=== PATIENT | female | born 1990 | race African-American/Black ===

== ENCOUNTER 2016-08-30 14:58 | Outpatient (CLI) | payer MEDICAID | END 2016-08-30 14:59 | disposition home or self-care (01) | DX: Z11.3 Encounter for screening for infections with a predominantly sexual mode of transmission (principal) ==

== ENCOUNTER 2017-12-15 13:54 | Outpatient (CLI) | payer MEDICAID | END 2017-12-15 13:55 | disposition home or self-care (01) | LOC: LAB.N 13:54 | PROVIDERS: ATTEND Nurse Practitioner | DX: Z33.1 Pregnant state, incidental (principal) | CPT/HCPCS: 36415; 84702 ==

== ENCOUNTER 2018-01-18 08:00 | Outpatient (CLI) | payer MEDICAID | END 2018-01-18 08:01 | disposition home or self-care (01) | LOC: LAB.R 08:00 | PROVIDERS: ATTEND Obstetrics & Gynecology | DX: Z11.3 Encounter for screening for infections with a predominantly sexual mode of transmission (principal) | CPT/HCPCS: 87491; 87591 ==

== ENCOUNTER 2018-03-08 15:27 | Outpatient (CLI) | payer MEDICAID ==
[2018-03-08 15:47] LABS: BASOPHILS % (AUTO) 0.2 %; EOSINOPHILS # (AUTO) 0.2 10^3/uL (0.0-0.7); EOSINOPHILS % (AUTO) 2.8 %; HGB - HEMOGLOBIN 11.8 g/dL (12.0-16.0); LYMPHOCYTES # (AUTO) 1.5 10^3/uL (1.5-3.5); LYMPHOCYTES % (AUTO) 17.9 %; MEAN CORPUSCULAR HEMOGLOBIN 32.1 pg (27.0-31.0); MEAN CORPUSCULAR HGB CONC 34.9 g/dL (32.0-36.0); MEAN CORPUSCULAR VOLUME 91.9 fL (81.0-99.0); MEAN PLATELET VOLUME 8.9 fL (7.9-10.8); MONOCYTES # (AUTO) 0.5 10^3/uL (0.0-1.0); MONOCYTES % (AUTO) 5.8 %; NEUTROPHILS % (AUTO) 73.3 %; PLT - PLATELET COUNT 215 10^3/uL (130-450); RED BLOOD COUNT 3.67 10^6/uL (4.20-5.40); RED CELL DISTRIBUTION WIDTH 13.1 % (12.0-15.0); WHITE BLOOD COUNT 8.2 x10^3/uL (4.8-10.8)
[2018-03-08 16:08] LABS: BILIRUBIN,URINE NEGATIVE (NEGATIVE); GLUCOSE, URINE (UA) NEGATIVE (NEGATIVE); KETONES,URINE (UA) NEGATIVE (NEGATIVE); LEUKOCYTE ESTERASE, URINE NEGATIVE (NEGATIVE); NITRITE,URINE NEGATIVE (NEGATIVE); OCCULT BLOOD,URINE NEGATIVE (NEGATIVE); PROTEIN,URINE NEGATIVE (NEGATIVE); UROBILINOGEN,URINE 0.2 (NORMAL) E.U./dL (NORMAL)
[2018-03-08 16:23] LABS: CLARITY,URINE CLOUDY (CLEAR)
[2018-03-08 16:24] LABS: AMORPHOUS SEDIMENT,UR Marked /LPF; BACTERIA,URINE None Seen /HPF (None Seen); RBC,URINE None Seen /HPF (0-5); SQUAMOUS EPITHELIAL CELL,UR MOD Squamous (<= Few)
[2018-03-09 15:51] LABS: HIV AG/AB 4TH GEN NON-REACTIVE (NON-REACTIVE)
[2018-03-09 16:56] LABS: HEPATITIS B SURFACE ANTIGEN NON-REACTIVE (NON-REACTIVE)
== END 2018-03-08 15:28 | disposition home or self-care (01) ==
LOC: LAB 15:27
PROVIDERS: ATTEND Obstetrics & Gynecology
DX: Z36.89 Encounter for other specified antenatal screening (principal); N76.0 Acute vaginitis
CPT/HCPCS: 36415; 81001; 81599; 82105; 82677; 84702; 85025; 86336; 86592; 86762; 86850; 86900; 86901; 87340; 87389

== ENCOUNTER 2018-03-09 08:00 | Outpatient (CLI) | payer MEDICAID | END 2018-03-09 23:59 | LOC: LAB.R 08:00 | PROVIDERS: ATTEND Obstetrics & Gynecology | DX: N76.0 Acute vaginitis (principal) | CPT/HCPCS: 87480; 87510; 87660 ==

== ENCOUNTER 2018-04-05 07:50 | Outpatient (CLI) | payer MEDICAID ==
--- NOTE | 2018-04-05 15:29 | Ultrasound Report ---
Reason: [facility] FOR SCREENING FOR MALFORMATIONS Procedure Date: 04/05/2018 Accession Number: [id number] / [id number] Procedure: US - OB Detailed Eval CPT Code: FULL RESULT: EXAM: COMPLETE OBSTETRICAL ULTRASOUND EXAM DATE: 04/05/2018 09:48 AM. CLINICAL HISTORY: anatomic survey. COMPARISON: None. TECHNIQUE: Real-time sonographic evaluation of the fetus performed by the aba tutor. Multiple vaccine customer representative static images were saved for review. DATING: Established EGA 19 weeks and 5 days with NATHAN 08/25/2018 based on the referring MD input. EGA 21 weeks and 1 day with NATHAN 08/15/2018 based on patient stated last menstrual period. EGA 20 weeks and 3 days with NATHAN 08/20/2018 based on the current ultrasound. GENERAL EVALUATION Burroughs . Cardiac activity: 133 bpm. movement: Visualized. Presentation: Variable Placenta: Posterior position. No evidence for previa. Umbilical cord: 3 vessel cord. Central placental cord origin. Amniotic fluid: Subjectively normal. MVP 4.7 cm. BIOMETRY Bi-Parietal Diameter (BPD): 4.8 cm, 20 weeks 5 days Head Circumference (HC): 17.5 cm, 20 weeks 0 days Abdominal Circumference (AC): 15.2 cm, 20 weeks 3 days Femur Length (FL): 3.4 cm, 20 weeks 5 days Estimated Weight: 355 grams, 85th percentile for 19 weeks and 5 days. Please note that growth percentile is not universally reported below 22 weeks to gestation. ANATOMY The intracranial structures, profile, face/nose/lips, spine, 4 chamber heart and outflow tracts, stomach, abdominal wall and cord insertion, diaphragm, kidneys, bladder, and extremities were visualized and demonstrate no abnormality. MATERNAL STRUCTURES Uterus: Unremarkable. Cervix: Long and closed. Transabdominal length 3.6 cm. Right ovary/adnexa: Unremarkable. Left ovary/adnexa: Unremarkable. Free fluid: None. IMPRESSION: 1. Burroughs live intrauterine with gestational age 19 weeks 5 days based on physician provided dating. 2. Estimated weight is within expected limits for assigned dating. 3. Normal anatomic survey. No anatomic abnormalities are detected at this time. RADIA
== END 2018-04-05 07:51 | disposition home or self-care (01) ==
LOC: DI 07:50
PROVIDERS: ATTEND Obstetrics & Gynecology
DX: Z36.3 Encounter for antenatal screening for malformations (principal)
CPT/HCPCS: 76811

== ENCOUNTER 2018-07-02 14:22 | Outpatient (CLI) | payer MEDICAID ==
[2018-07-02 15:37] LABS: BASOPHILS % (AUTO) 0.1 %; EOSINOPHILS # (AUTO) 0.2 10^3/uL (0.0-0.7); EOSINOPHILS % (AUTO) 3.1 %; HGB - HEMOGLOBIN 11.2 g/dL (12.0-16.0); LYMPHOCYTES # (AUTO) 1.4 10^3/uL (1.5-3.5); LYMPHOCYTES % (AUTO) 18.9 %; MEAN CORPUSCULAR HEMOGLOBIN 32.3 pg (27.0-31.0); MEAN CORPUSCULAR HGB CONC 34.2 g/dL (32.0-36.0); MEAN CORPUSCULAR VOLUME 94.3 fL (81.0-99.0); MEAN PLATELET VOLUME 9.2 fL (7.9-10.8); MONOCYTES # (AUTO) 0.5 10^3/uL (0.0-1.0); MONOCYTES % (AUTO) 6.1 %; NEUTROPHILS # (AUTO) 5.5 10^3/uL (1.5-6.6); NEUTROPHILS % (AUTO) 71.8 %; PLT - PLATELET COUNT 175 10^3/uL (130-450); RED BLOOD COUNT 3.48 10^6/uL (4.20-5.40); RED CELL DISTRIBUTION WIDTH 13.9 % (12.0-15.0); WHITE BLOOD COUNT 7.7 x10^3/uL (4.8-10.8)
[2018-07-02 15:54] LABS: ALBUMIN 2.8 g/dL (3.2-5.5); ALKALINE PHOSPHATASE 103 IU/L (42-121); ALT ALANINE AMINOTRANSFERASE 17 IU/L (10-60); AST ASPARTATE AMINOTRANSFERASE 19 IU/L (10-42); BILIRUBIN,TOTAL 0.2 mg/dL (0.2-1.0); TOTAL PROTEIN 6.5 g/dL (6.7-8.2)
[2018-07-02 16:01] LABS: BILIRUBIN,DIRECT < 0.1 mg/dL (0.1-0.5)
== END 2018-07-02 14:23 | disposition home or self-care (01) ==
LOC: LAB 14:22
PROVIDERS: ATTEND Obstetrics & Gynecology
DX: L29.9 Pruritus, unspecified (principal); Z36.9 Encounter for antenatal screening, unspecified; Z33.1 Pregnant state, incidental
CPT/HCPCS: 36415; 80076; 82239; 82950; 85025; 85027; 86850

== ENCOUNTER 2018-08-12 08:16 | Outpatient (CLI) | payer MEDICAID | END 2018-08-12 08:17 | disposition home or self-care (01) | LOC: LAB 08:16 | PROVIDERS: ATTEND Obstetrics & Gynecology | DX: R73.9 Hyperglycemia, unspecified (principal) ==

== ENCOUNTER 2018-08-13 10:14 | Outpatient (CLI) | payer MEDICAID | END 2018-08-13 10:15 | disposition home or self-care (01) | LOC: LAB 10:14 | PROVIDERS: ATTEND Obstetrics & Gynecology | DX: R73.9 Hyperglycemia, unspecified (principal) | CPT/HCPCS: 36415; 82951; 82952 ==

== ENCOUNTER 2018-08-14 15:27 | Outpatient (CLI) | payer MEDICAID | END 2018-08-14 23:59 | disposition home or self-care (01) | LOC: LAB.R 15:27 | PROVIDERS: ATTEND Obstetrics & Gynecology | DX: Z34.83 Encounter for supervision of other normal pregnancy, third trimester (principal); Z3A.39 39 weeks gestation of pregnancy | CPT/HCPCS: 87491; 87591; 87797 ==

== ENCOUNTER 2018-08-24 09:20 | Outpatient (CLI) | payer MEDICAID ==
[2018-08-24 10:08] VITALS: BP 126/89
[2018-08-24 10:39] LABS: BASOPHILS % (AUTO) 0.2 %; EOSINOPHILS # (AUTO) 0.2 10^3/uL (0.0-0.7); EOSINOPHILS % (AUTO) 1.8 %; HGB - HEMOGLOBIN 12.6 g/dL (12.0-16.0); LYMPHOCYTES # (AUTO) 1.8 10^3/uL (1.5-3.5); LYMPHOCYTES % (AUTO) 21.3 %; MEAN CORPUSCULAR HEMOGLOBIN 31.8 pg (27.0-31.0); MEAN CORPUSCULAR HGB CONC 34.2 g/dL (32.0-36.0); MEAN CORPUSCULAR VOLUME 92.9 fL (81.0-99.0); MEAN PLATELET VOLUME 9.7 fL (7.9-10.8); MONOCYTES # (AUTO) 0.5 10^3/uL (0.0-1.0); MONOCYTES % (AUTO) 6.3 %; NEUTROPHILS # (AUTO) 5.9 10^3/uL (1.5-6.6); NEUTROPHILS % (AUTO) 70.4 %; PLT - PLATELET COUNT 155 10^3/uL (130-450); RED BLOOD COUNT 3.98 10^6/uL (4.20-5.40); RED CELL DISTRIBUTION WIDTH 14.5 % (12.0-15.0); WHITE BLOOD COUNT 8.4 x10^3/uL (4.8-10.8)
[2018-08-24 10:41] LABS: BILIRUBIN,URINE NEGATIVE (NEGATIVE); GLUCOSE, URINE (UA) NEGATIVE (NEGATIVE); KETONES,URINE (UA) NEGATIVE (NEGATIVE); LEUKOCYTE ESTERASE, URINE NEGATIVE (NEGATIVE); NITRITE,URINE NEGATIVE (NEGATIVE); OCCULT BLOOD,URINE NEGATIVE (NEGATIVE); PROTEIN,URINE NEGATIVE (NEGATIVE); UROBILINOGEN,URINE 0.2 (NORMAL) E.U./dL (NORMAL)
[2018-08-24 10:47] LABS: URIC ACID 4.3 mg/dL (2.6-7.2)
[2018-08-24 10:57] LABS: CLARITY,URINE HAZY (CLEAR); RBC,URINE 0-5 /HPF (0-5)
[2018-08-24 10:58] LABS: AMORPHOUS SEDIMENT,UR Moderate /LPF; BACTERIA,URINE Few /HPF (None Seen); SQUAMOUS EPITHELIAL CELL,UR FEW Squamous (<= Few)
[2018-08-24 11:06] LABS: CREATININE,URINE 101.5 mg/dL; PROTEIN/CREATININE RATIO,URINE 0.1 (<=0.2)
[2018-08-24 11:15] LABS: CREATININE 0.7 mg/dL (0.4-1.0)
== END 2018-08-24 11:45 | disposition home or self-care (01) ==
LOC: WFO 09:20 → FBP 09:26 → WFO 11:45
PROVIDERS: ATTEND Obstetrics & Gynecology
DX: Z34.83 Encounter for supervision of other normal pregnancy, third trimester (principal)
CPT/HCPCS: 36415; 81001; 82565; 82570; 83615; 84156; 84450; 84550; 85025; 85384; 87086; 99214

== ENCOUNTER 2018-08-28 00:33 | Outpatient (CLI) | payer MEDICAID ==
[2018-08-28 03:01] VITALS: BP 132/71
== END 2018-08-28 01:37 | disposition home or self-care (01) ==
LOC: WFO 00:33 → FBP 00:33 → WFO 01:37
PROVIDERS: ATTEND Obstetrics & Gynecology
DX: Z53.9 Procedure and treatment not carried out, unspecified reason (principal)
CPT/HCPCS: 99213

== ENCOUNTER 2018-12-25 16:59 | Outpatient (CLI) | payer MEDICAID ==
[2018-12-28 21:41] LABS: CANDIDA GROUP DNA NEGATIVE (NEGATIVE); CANDIDA KRUSEI DNA NEGATIVE (NEGATIVE); TRICHOMONAS VAGINALIS DNA NEGATIVE (NEGATIVE)
== END 2018-12-25 23:59 | disposition home or self-care (01) ==
LOC: LAB.R 16:59
PROVIDERS: ATTEND Obstetrics & Gynecology
DX: N93.9 Abnormal uterine and vaginal bleeding, unspecified (principal)
CPT/HCPCS: 87661; 87801

== ENCOUNTER 2019-03-11 16:01 | Outpatient (CLI) | payer MEDICAID ==
--- NOTE | 2019-03-12 07:10 | Ultrasound Report ---
Reason: ABNORMAL VAGINAL BLEEDING Procedure Date: 03/11/2019 Accession Number: [id number] / [id number] Procedure: US - Pelvic w/Transvaginal CPT Code: FULL RESULT: EXAM: PELVIC ULTRASOUND EXAM DATE: 03/11/2019 04:45 PM. CLINICAL HISTORY: ABNORMAL VAGINAL BLEEDING. COMPARISON: None. TECHNIQUE: Realtime transabdominal pelvic scan performed to identify the uterus and adnexa and as an overview of other pelvic structures, followed by transvaginal scan to provide greater detail of the uterus and adnexa, with static image documentation. FINDINGS: Uterus: 8.6 x 5.3 x 5 cm, volume 118 cc. Anteverted position. Unremarkable overall size and echotexture. Masses: Probable fibroid at the right uterine body that appears intramural measuring approximately 0.9 cm. Endometrium: 9 mm. No discrete lesion. Cervix: Unremarkable. Right Ovary: 3 x 2.1 x 2.8 cm, volume 9.2 cc. Small follicles. Normal echotexture and blood flow. Left Ovary: 2.7 x 2.6 x 2.6 cm, volume 9.6 cc. Small follicles. Normal echotexture and blood flow. Free Fluid: None. Other: None. IMPRESSION: 1. Probable subcentimeter fibroid at the right uterine body. 2. Normal endometrial thickness. 3. Unremarkable sonographic appearance of the ovaries. 4. No free fluid identified within the pelvis. RADIA
== END 2019-03-11 16:02 | disposition home or self-care (01) ==
LOC: DI 16:01
PROVIDERS: ATTEND Obstetrics & Gynecology
DX: N93.9 Abnormal uterine and vaginal bleeding, unspecified (principal)
CPT/HCPCS: 76830; 76856

== ENCOUNTER 2019-10-15 08:00 | Outpatient (CLI) | payer MEDICAID | END 2019-10-15 23:59 | disposition home or self-care (01) | LOC: LAB.R 08:00 | PROVIDERS: ATTEND Family Medicine | DX: R50.9 Fever, unspecified (principal) | CPT/HCPCS: 81599 ==

== ENCOUNTER 2020-04-20 16:41 | Emergency (ER) | payer MEDICAID ==
[2020-04-20 16:53] VITALS: BP 146/80
--- NOTE | 2020-04-20 16:59 | ED Physician Documentation ---
PD HPI WOUND RECHECK - Stated complaint Stated Complaint: WOUND - Chief complaint Chief Complaint: Wound - Histroy obtained from History obtained from: Patient (She noted a raised painful lesion on the right buttock today. 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 HEENT: None Psych: None Musculoskeletal: None - Present Medications Home Medications: Ambulatory Orders Medication Instructions Recorded Confirmed Ibuprofen [Motrin] 800 mg PO Q8H tablet 09/01/18 oxyCODONE [Roxicodone] 5 mg PO Q4HR PRN #0 tablet 09/01/18 Cephalexin [Keflex] 500 mg PO Q6H #28 capsule 04/20/20 - Allergies Allergies/Adverse Reactions: Allergies Allergy/AdvReac Type Severity Reaction Status Date / Time No Known Drug Allergies Allergy Verified 04/20/20 16:53 - Social History Smoking Status: Former smoker PD ED PE NORMAL - Vitals Vital signs reviewed: Yes - General General: Alert and oriented X 3, No acute distress - HEENT HEENT: PERRL, EOMI - Neck Neck: Supple, no meningeal sign, No bony TTP - Derm Derm: Other (What looks like a single 2 cm area of bullous impetigo on the right medial superior buttock.) - Neuro Neuro: Alert and oriented X 3, Normal speech Results - Vitals Vitals: Vital Signs - 24 hr 04/20/20 16:49 Temperature 36.4 C L Heart Rate 102 H Respiratory 18 Rate Blood Pressure 146/80 H O2 Saturation 98 Oxygen O2 Source Room air Procedures - Abscess I&D (location) R buttock Incision: Incised with scalpel, Culture obtained. No: Purulent drainage (clear) Other: Antibiotic prescribed Departure - Departure Disposition: 01 Home, Self Care Clinical Impression: Impetigo bullosa Condition: Good Record reviewed to determine appropriate education?: Yes Instructions: ED Abscess IandD Prescriptions: Cephalexin [Keflex] 500 mg PO Q6H #28 capsule Comments: We are performing a wound culture, the results should be done in 48-72 hours. If antibiotic change is necessary we will call you. Return if worse in the meantime, especially if you develop increased pain, fevers, cannot keep down the medication. Otherwise follow-up with your physician in approximately 2-3 days. Forms: Activity restrictions
[2020-04-20] MEDS ORDERED: cephALEXin 250 MG CAPSULE PO STA (17:13)
== END 2020-04-20 17:21 | disposition home or self-care (01) ==
LOC: ED 16:41
DX: L01.03 Bullous impetigo (principal); Z87.891 Personal history of nicotine dependence
CPT/HCPCS: 10060; 87070; 87205; 99283; A9270; 87077; 87181

== ENCOUNTER 2020-05-27 08:00 | Outpatient (CLI) | payer MEDICAID ==
[2020-05-27 23:07] LABS: TRICHOMONAS VAGINALIS DNA NEGATIVE (NEGATIVE)
== END 2020-05-27 23:59 | disposition home or self-care (01) ==
LOC: LAB.R 08:00
PROVIDERS: ATTEND Obstetrics & Gynecology
DX: Z11.3 Encounter for screening for infections with a predominantly sexual mode of transmission (principal)
CPT/HCPCS: 87491; 87591; 87661

== ENCOUNTER 2020-11-13 23:20 | Emergency (ER) | payer MEDICAID ==
--- NOTE | 2020-11-14 00:12 | ED Physician Documentation ---
PD HPI URI - Stated complaint Stated Complaint: SORE THROAT/CHEST PRESSURE - Chief complaint Chief Complaint: Heent - History obtained from History obtained from: Patient - History of Present Illness Timing - onset: How many weeks ago (3) Timing duration: Weeks (3) Timing details: Gradual onset, Still present (has had sinus congestion and fullness for 3 weeks, with now having purulent discharge with blowing nose. Having some developing cough without wheezing.) Associated symptoms: Nasal congestion, Sinus pain, Sore throat (without swelling), Dry cough, Dyspnea. No: Fever Contributing factors: Other (had COVID test twice in past couple weeks, negative each time.). No: Sick contact, Travel, Immunocompromised Similar symptoms before: Has not had sx before Recently seen: Clinic (Dx URI and had negative COVID testing.) Review of Systems Constitutional: reports: Myalgias. denies: Fever, Chills Nose: reports: Congestion (now purulent), Sinus pressure / pain Throat: reports: Sore throat Cardiac: denies: Palpitations Respiratory: reports: Cough. 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 HEENT: None Psych: None Musculoskeletal: None - Past Surgical History Past Surgical History: No - Present Medications Home Medications: Ambulatory Orders Medication Instructions Recorded Confirmed Amoxicillin 500 mg PO TID #21 cap 11/14/20 Benzonatate [Tessalon] 100 mg PO TID PRN #20 cap 11/14/20 Cetirizine [ZyrTEC] 10 mg PO DAILY #15 tablet 11/14/20 dexAMETHasone [Decadron] 4 mg PO DAILY #5 tablet 11/14/20 - Allergies Allergies/Adverse Reactions: Allergies Allergy/AdvReac Type Severity Reaction Status Date / Time No Known Drug Allergies Allergy Verified 11/14/20 00:09 - Social History Does the pt smoke?: No Smoking Status: Never smoker Does the pt drink ETOH?: No Does the pt have substance abuse?: No - Immunizations Immunizations are current?: Yes - POLST Patient has POLST: No PD ED PE NORMAL - Vitals Vital signs reviewed: Yes - General General: Alert and oriented X 3, No acute distress, Well developed/nourished - HEENT HEENT: Ears normal, Moist mucous membranes, Pharynx benign - Neck Neck: Supple, no meningeal sign, No adenopathy - Cardiac Cardiac: RRR, No murmur - Respiratory Respiratory: Clear bilaterally - Derm Derm: Normal color, Warm and dry, No rash Results - Vitals Vitals: Vital Signs - 24 hr 11/14/20 11/14/20 00:05 03:00 Temperature 36.6 C 36.0 C L Heart Rate 74 66 Respiratory 16 16 Rate Blood Pressure 115/77 144/81 H O2 Saturation 100 100 Oxygen O2 Source Room air - Labs Labs: Laboratory Tests 11/14/20 11/14/20 00:07 00:58 Urine HCG, Qual NEGATIVE Group A Strep Rapid Negative - Rads (name of study) chest xray Radiology: Prelim report reviewed (no infiltrates), See rad report PD MEDICAL DECISION MAKING - ED course Complexity details: reviewed results, considered differential (seems like URI initially with now purulent drainage and increased frontal pressure. Seems likely development of secondary bacterial infection. ), d/w patient Departure - Departure Disposition: 01 Home, Self Care Clinical Impression: Sinusitis, acute Qualifiers: Sinusitis location: unspecified location Recurrence: non-recurrent Qualified Code(s): J01.90 - Acute sinusitis, unspecified Condition: Stable Record reviewed to determine appropriate education?: Yes Instructions: ED Sinusitis Abx Tx Prescriptions: Amoxicillin 500 mg PO TID #21 cap dexAMETHasone [Decadron] 4 mg PO DAILY #5 tablet Benzonatate [Tessalon] 100 mg PO TID PRN #20 cap PRN Reason: Cough Cetirizine [ZyrTEC] 10 mg PO DAILY #15 tablet Comments: Your chest x-ray appears normal. Your rapid strep test is negative. The throat culture will result in a couple of days we will call you if there is any positive results for other types of strep. Meanwhile your symptoms sound like a sinus infection. We can treat this with cetirizine and antihistamine for congestion. Also Decadron steroid daily for the next several days for inflammation. Add benzonatate if needed for cough. Also amoxicillin 3 times a day for a week for what sounds likely to be bacterial infection at this point. Recheck if not improved well over the next several days to a week. Discharge Date/Time: 11/14/20 03:02
[2020-11-14 00:26] LABS: RAPID STREP SCREEN Negative (Negative)
[2020-11-14 01:13] LABS: HCG UR QUAL NEGATIVE
[2020-11-14] MEDS ORDERED: AMOXICILLIN 250 MG CAPSULE PO STA (02:40)
[2020-11-14] MEDS ORDERED: BENZONATATE 100 MG CAPSULE PO STA (02:40)
[2020-11-14 03:18] VITALS: BP 144/81
--- NOTE | 2020-11-14 10:39 | XRAY Report ---
PROCEDURE: Chest 2 View X-Ray INDICATIONS: dyspnea/ cough TECHNIQUE: 2 view(s) of the chest. COMPARISON: None. FINDINGS: Surgical changes and devices: None. Lungs and pleura: No pleural effusions or pneumothorax. Lungs are clear. Mediastinum: Mediastinal contours are normal. Heart size is normal. Bones and chest wall: No suspicious bony abnormalities. Soft tissues appear unremarkable. IMPRESSION: Normal. No infiltrates. Note: No significant discrepancy from the preliminary report. Reviewed by: Xavi Loera MD on 11/14/2020 9:38 AM ANEUDY Approved by: Xavi Loera MD on 11/14/2020 9:38 AM ANEUDY Station ID: [id number]
== END 2020-11-14 03:02 | disposition home or self-care (01) ==
LOC: ED 23:20
DX: J01.90 Acute sinusitis, unspecified (principal)
CPT/HCPCS: 71046; 81025; 87070; 87430; 99283; 99284; A9270

== ENCOUNTER 2020-12-29 08:00 | Outpatient (CLI) | payer MEDICAID | END 2020-12-29 23:59 | disposition home or self-care (01) | LOC: LAB.N 08:00 | PROVIDERS: ATTEND Family Medicine | DX: N39.0 Urinary tract infection, site not specified (principal); Z32.02 Encounter for pregnancy test, result negative | CPT/HCPCS: 87086; 87181 ==

== ENCOUNTER 2021-08-16 20:53 | Emergency (ER) | payer MEDICAID ==
--- NOTE | 2021-08-16 21:00 | ED Physician Documentation ---
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 No: Fever, Abdominal pain OB-LOOM CHANGER History: G (3), P (1), Termination(s) (1), Prior vag delivery (1) Recently seen: Not recently seen - Additional information Additional information: patient is approximately 8 weeks , has not had an US in this yet. 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 She does not know her blood type. She is not COVID vaccinated. Review of Systems Constitutional: reports: Reviewed and negative Cardiac: reports: Reviewed and negative Respiratory: reports: Reviewed and negative GI: reports: Reviewed and negative : reports: Vaginal bleeding, Now EGA (8 weeks). 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: None : None HEENT: None Psych: None Musculoskeletal: None - Past Surgical History Past Surgical History: No - Present Medications Home Medications: Ambulatory Orders Medication Instructions Recorded Confirmed Cetirizine [ZyrTEC] 10 mg PO DAILY #15 tablet 11/14/20 08/16/21 - Allergies Allergies/Adverse Reactions: Allergies Allergy/AdvReac Type Severity Reaction Status Date / Time No Known Drug Allergies Allergy Verified 08/16/21 21:01 - Social History Does the pt smoke?: No Smoking Status: Never smoker Does the pt drink ETOH?: No Does the pt have substance abuse?: No - Immunizations Immunizations are current?: Yes - POLST Patient has POLST: No PD ED PE NORMAL - Vitals Vital signs reviewed: Yes - General General: Alert and oriented X 3, No acute distress, Well developed/nourished - Cardiac Cardiac: RRR, No murmur - Respiratory Respiratory: No respiratory distress, Clear bilaterally - Abdomen Abdomen: Soft, Non tender, Non distended - Female Female : Other (right anterior hemipelvic/RLQ TTP) - Back Back: No CVA TTP Results - Vitals Vitals: Vital Signs - 24 hr 08/16/21 08/16/21 08/16/21 21:01 21:03 22:07 Temperature 36.7 C Heart Rate 72 68 60 Respiratory 16 16 16 Rate Blood Pressure 142/85 H 138/93 H 104/70 O2 Saturation 100 100 100 08/16/21 08/16/21 08/16/21 22:21 23:12 23:32 Temperature Heart Rate 59 L 60 Respiratory 16 17 Rate Blood Pressure 109/73 125/84 H 116/63 O2 Saturation 100 100 08/17/21 08/17/21 08/17/21 00:29 01:01 01:28 Temperature 36.7 C Heart Rate 60 66 66 Respiratory 16 17 16 Rate Blood Pressure 114/68 106/61 106/61 O2 Saturation 100 100 100 Oxygen O2 Source Room air - Labs Labs: Laboratory Tests 08/16/21 08/16/21 08/16/21 21:34 21:40 21:40 WBC 7.3 RBC 3.94 L Hgb 12.3 Hct 36.4 L MCV 92.4 MCH 31.2 H MCHC 33.8 RDW 12.6 Plt Count 274 MPV 10.6 Neut # (Auto) 4.7 Lymph # (Auto) 1.9 Rice # (Auto) 0.3 Eos # (Auto) 0.3 Baso # (Auto) 0.0 Absolute Nucleated RBC 0.00 Nucleated RBC % 0.0 Sodium Potassium Chloride Carbon Dioxide Anion Gap BUN Creatinine Estimated GFR (MDRD) Glucose Calcium HCG, Quant Urine Color LT RED Urine Clarity CLEAR Urine pH 6.0 Ur Specific [place] <=1.005 Urine Protein 100 H Urine Glucose (UA) NEGATIVE Urine Ketones NEGATIVE Urine Occult Blood LARGE H Urine Nitrite NEGATIVE Urine Bilirubin NEGATIVE Urine Urobilinogen 0.2 (NORMAL) Ur Leukocyte Esterase NEGATIVE Urine RBC 11-25 H Urine WBC 0-3 Ur Squamous Epith Cells RARE Squamous Urine Bacteria Rare Ur Microscopic Review INDICATED Urine Culture Comments NOT INDICATED Blood Type O POSITIVE 08/16/21 08/16/21 21:40 21:40 WBC RBC Hgb Hct MCV MCH MCHC RDW Plt Count MPV Neut # (Auto) Lymph # (Auto) Rice # (Auto) Eos # (Auto) Baso # (Auto) Absolute Nucleated RBC Nucleated RBC % Sodium 133 L Potassium 3.4 L Chloride 100 L Carbon Dioxide 23 Anion Gap 10.0 BUN 8 Creatinine 0.5 Estimated GFR (MDRD) 176 Glucose 88 Calcium 9.4 HCG, Quant 132129.00 Urine Color Urine Clarity Urine pH Ur Specific [place] Urine Protein Urine Glucose (UA) Urine Ketones Urine Occult Blood Urine Nitrite Urine Bilirubin Urine Urobilinogen Ur Leukocyte Esterase Urine RBC Urine WBC Ur Squamous Epith Cells Urine Bacteria Ur Microscopic Review Urine Culture Comments Blood Type - Rads (name of study) first trimester US Radiology: Prelim report reviewed, See rad report PD MEDICAL DECISION MAKING - ED course Complexity details: reviewed results, re-evaluated patient, considered differential, d/w patient ED course: No concerning findings on blood tests. Blood type is O positive. US shows IUP with 145 bpm heart rate and measurements consistent with 8w1d gestation. A subchorionic hemorrage is noted. Results d/w patient. On reevalaution, she says the cramping and bleeding have attenuated but not resolved. At this time the diagnosis is threatened miscarriage and this is d/w patient. She is encouraged to return if worse, follow up with her validation architect next available appointment. A work excuse for the rest of this weekdays this week is provided. Departure - Departure Disposition: 01 Home, Self Care Clinical Impression: Threatened Condition: Good Instructions: ED Miscarriage Poss Follow-Up: Daniel Amezquita MD [Provider Admit Priv/Credential] - Comments: Your blood type is O Positive The ultrasound shows an embryo with measurements that correlate with 8 weeks and 1 day. heart rate is 145. There is a small amount of bleeding near the embryo; this is called a subchorionic hemorrhage, the significance of which is unclear (does not necessarily correlate with the outcome of the ). Also an incidentally noted small uterine fibroid is noted; this is a benign growth off the uterus. Seek follow up for reevaluation with validation architect by the end of this week if can be arranged. Forms: Activity restrictions Discharge Date/Time: 08/17/21 01:35
[2021-08-16] MEDS ORDERED: ACETAMINOPHEN 325 MG TABLET PO STA (21:35)
[2021-08-16 21:47] LABS: BILIRUBIN,URINE NEGATIVE (NEGATIVE); GLUCOSE, URINE (UA) NEGATIVE (NEGATIVE); KETONES,URINE (UA) NEGATIVE (NEGATIVE); LEUKOCYTE ESTERASE, URINE NEGATIVE (NEGATIVE); NITRITE,URINE NEGATIVE (NEGATIVE); OCCULT BLOOD,URINE LARGE (NEGATIVE); PROTEIN,URINE 100 mg/dL (NEGATIVE); UROBILINOGEN,URINE 0.2 (NORMAL) E.U./dL (NORMAL)
[2021-08-16 21:49] LABS: BASOPHILS % (AUTO) 0.4 %; EOSINOPHILS # (AUTO) 0.3 10^3/uL (0.0-0.7); EOSINOPHILS % (AUTO) 4.5 %; HCT - HEMATOCRIT 36.4 % (37.0-47.0); HGB - HEMOGLOBIN 12.3 g/dL (12.0-16.0); LYMPHOCYTES # (AUTO) 1.9 10^3/uL (1.5-3.5); LYMPHOCYTES % (AUTO) 25.7 %; MEAN CORPUSCULAR HEMOGLOBIN 31.2 pg (27.0-31.0); MEAN CORPUSCULAR HGB CONC 33.8 g/dL (32.0-36.0); MEAN CORPUSCULAR VOLUME 92.4 fL (81.0-99.0); MEAN PLATELET VOLUME 10.6 fL (7.9-10.8); MONOCYTES # (AUTO) 0.3 10^3/uL (0.0-1.0); MONOCYTES % (AUTO) 4.7 %; NEUTROPHILS # (AUTO) 4.7 10^3/uL (1.5-6.6); NEUTROPHILS % (AUTO) 64.4 %; PLT - PLATELET COUNT 274 10^3/uL (130-450); RED BLOOD COUNT 3.94 10^6/uL (4.20-5.40); RED CELL DISTRIBUTION WIDTH 12.6 % (12.0-15.0); WHITE BLOOD COUNT 7.3 x10^3/uL (4.8-10.8)
[2021-08-16 21:56] LABS: BACTERIA,URINE Rare /HPF (None Seen); CLARITY,URINE CLEAR (CLEAR); SQUAMOUS EPITHELIAL CELL,UR RARE Squamous (<= Few); WBC,URINE 0-3 /HPF (0-5)
[2021-08-16 21:59] LABS: CALCIUM 9.4 mg/dL (8.5-10.3); CREATININE 0.5 mg/dL (0.4-1.0); POTASSIUM 3.4 mmol/L (3.5-5.0)
--- NOTE | 2021-08-17 00:12 | Ultrasound Report ---
PROCEDURE: OB First Trimester INDICATIONS: 8 wks ; bleeding, right pelvic pain OUTSIDE/PRIOR DATING DATA: Last menstrual period (LMP): 06/18/2021. LMP-based estimated date of delivery (NATHAN): 03/25/2022. First dating scan (date and location): 08/16/2021. Estimated date of delivery (NATHAN) from first dating scan: 03/27/2022. The below data below was generated using the ultrasound NATHAN of 03/27/2022 TECHNIQUE: Real-time scanning was performed of the fetus and maternal pelvic organs, with image documentation. COMPARISON: None FINDINGS: There is a living early first trimester intrauterine . [place]-rump length measures 1.73 cm, 8 weeks 1 day. A heart rate is noted. Embryo: 1.73 cm, 8 weeks 1 day Heart rate: 145 bpm There is a subchorionic hemorrhage noted measuring 2.4 x 0.9 x 3.3 cm. A small right uterine fibroid is noted measuring 1.4 cm in maximum diameter. Measurement variability in dating: +/- 4 weeks by LMP, +/- 7 days by mean sac diameter (use before 6 weeks gestation if crown-rump length not able to be measured), +/- 5 days by crown-rump length (6-12 weeks gestation). Maternal organs: Ovaries unremarkable. IMPRESSION: 1. Living early first trimester intrauterine with crown-rump length and heart beat. 2. Subchorionic hemorrhage. Reviewed by: Michael Deng MD on 08/17/2021 12:10 AM PST Approved by: Michael Deng MD on 08/17/2021 12:10 AM PST Station ID: [id number]
[2021-08-17 01:02] VITALS: BP 106/61
== END 2021-08-17 01:35 | disposition home or self-care (01) ==
LOC: ED 20:53
DX: O20.0 Threatened abortion (principal); O34.11 Maternal care for benign tumor of corpus uteri, first trimester; D25.9 Leiomyoma of uterus, unspecified; Z3A.08 8 weeks gestation of pregnancy
CPT/HCPCS: 36415; 76801; 76817; 80048; 81001; 84702; 85025; 86900; 86901; 99282; 99284; A9270; 81003; 87086

== ENCOUNTER 2021-08-17 17:54 | Emergency (ER) | payer MEDICAID ==
[2021-08-17 18:29] LABS: BASOPHILS % (AUTO) 0.4 %; EOSINOPHILS # (AUTO) 0.2 10^3/uL (0.0-0.7); EOSINOPHILS % (AUTO) 2.3 %; HCT - HEMATOCRIT 29.6 % (37.0-47.0); HGB - HEMOGLOBIN 10.3 g/dL (12.0-16.0); LYMPHOCYTES # (AUTO) 1.6 10^3/uL (1.5-3.5); LYMPHOCYTES % (AUTO) 19.2 %; MEAN CORPUSCULAR HEMOGLOBIN 32.1 pg (27.0-31.0); MEAN CORPUSCULAR HGB CONC 34.8 g/dL (32.0-36.0); MEAN CORPUSCULAR VOLUME 92.2 fL (81.0-99.0); MEAN PLATELET VOLUME 10.8 fL (7.9-10.8); MONOCYTES # (AUTO) 0.4 10^3/uL (0.0-1.0); MONOCYTES % (AUTO) 4.4 %; NEUTROPHILS # (AUTO) 6.1 10^3/uL (1.5-6.6); NEUTROPHILS % (AUTO) 73.3 %; PLT - PLATELET COUNT 252 10^3/uL (130-450); RED BLOOD COUNT 3.21 10^6/uL (4.20-5.40); RED CELL DISTRIBUTION WIDTH 12.6 % (12.0-15.0); WHITE BLOOD COUNT 8.3 x10^3/uL (4.8-10.8)
--- NOTE | 2021-08-17 18:31 | ED Physician Documentation ---
History of Present Illness - Stated complaint Stated Complaint: LIGHT HEADED/DIZZINESS/WEAKNESS - Chief complaint Chief Complaint: Abd Pain - Additonal information Additional information: 31-year-old female presents the emergency department for repeat evaluation after finding that she was passing heavy blood clots this afternoon and near syncope. She came to the ER yesterday with some vaginal spotting and lower abdominal cramping in the first trimester . [id number] LMP 06/18/2021. Ultrasound yesterday showed that she had a live IUP at just over 8 weeks with an associated subchorionic hemorrhage. Pt is Rh+ Review of Systems Constitutional: denies: Fever, Chills Eyes: reports: Reviewed and negative Nose: reports: Reviewed and negative Throat: reports: Reviewed and negative Cardiac: reports: Reviewed and negative Respiratory: reports: Reviewed and negative GI: reports: Abdominal Pain. denies: Nausea, Vomiting, Constipation, Diarrhea : reports: Vaginal bleeding, Now EGA (02/2022) Skin: reports: Reviewed and negative Musculoskeletal: reports: Reviewed and negative Neurologic: reports: Reviewed and negative Psychiatric: reports: Reviewed and negative PD PAST MEDICAL HISTORY - Past Medical History Cardiovascular: None Respiratory: None Neuro: None Endocrine/Autoimmune: None GI: None NEURODIAGNOSTIC TECHNICIAN: None : None HEENT: None Psych: None Musculoskeletal: None - Past Surgical History Past Surgical History: No - Present Medications Home Medications: Ambulatory Orders Medication Instructions Recorded Confirmed Cetirizine [ZyrTEC] 10 mg PO DAILY #15 tablet 11/14/20 08/17/21 HYDROcod/ACETAM 5/325 [Vanderbilt 5/325] 1 tablet PO BID PRN #5 tablet 08/17/21 - Allergies Allergies/Adverse Reactions: Allergies Allergy/AdvReac Type Severity Reaction Status Date / Time No Known Drug Allergies Allergy Verified 08/16/21 21:01 - Social History Does the pt smoke?: No Smoking Status: Never smoker Does the pt drink ETOH?: No Does the pt have substance abuse?: No - Immunizations Immunizations are current?: Yes - POLST Patient has POLST: No PD ED PE NORMAL - General General: Alert and oriented X 3, No acute distress, Well developed/nourished - HEENT HEENT: Atraumatic, Moist mucous membranes, Pharynx benign - Neck Neck: Supple, no meningeal sign, No adenopathy - Cardiac Cardiac: RRR, No murmur, No gallop - Respiratory Respiratory: No respiratory distress, Clear bilaterally - Abdomen Abdomen: Normal bowel sounds, Soft. No: Non tender (Focal lower abdominal tenderness on the right side without guarding or rebound.) - Female Female : Customer Service Clerk present (Patient is passing heavy clots vaginally.) - Back Back: No CVA TTP, No spinal TTP - Derm Derm: Normal color, Warm and dry, No rash - Extremities Extremities: No deformity, No tenderness to palpate - Neuro Neuro: Alert and oriented X 3, plater barrel 2-12 intact Eye Opening: Spontaneous Verbal: Oriented Results - Vitals Vitals: Vital Signs - 24 hr 08/17/21 08/17/21 08/17/21 18:00 18:34 18:49 Temperature 35.8 C L Heart Rate 101 H 70 Heart Rate [ 84 Sitting] Heart Rate [ 100 Standing] Heart Rate [ 74 Supine] Respiratory 20 23 Rate Blood Pressure 97/52 L 83/56 L Blood Pressure 110/63 [Sitting] Blood Pressure 102/65 [Standing] Blood Pressure 105/62 [Supine] O2 Saturation 100 100 08/17/21 20:34 Temperature Heart Rate 69 Heart Rate [ Sitting] Heart Rate [ Standing] Heart Rate [ Supine] Respiratory 18 Rate Blood Pressure 99/60 Blood Pressure [Sitting] Blood Pressure [Standing] Blood Pressure [Supine] O2 Saturation 100 Oxygen O2 Source Room air - Labs Labs: Laboratory Tests 08/17/21 08/17/21 08/17/21 18:20 18:20 18:20 WBC 8.3 RBC 3.21 L Hgb 10.3 L Hct 29.6 L MCV 92.2 MCH 32.1 H MCHC 34.8 RDW 12.6 Plt Count 252 MPV 10.8 Neut # (Auto) 6.1 Lymph # (Auto) 1.6 Mora # (Auto) 0.4 Eos # (Auto) 0.2 Baso # (Auto) 0.0 Absolute Nucleated RBC 0.00 Nucleated RBC % 0.0 Sodium 133 L Potassium 3.3 L Chloride 101 Carbon Dioxide 23 Anion Gap 9.0 BUN 11 Creatinine 0.9 Estimated GFR (MDRD) 89 Glucose 118 H Calcium 9.0 HCG, Quant 103036.00 Blood Type Antibody Screen 08/17/21 08/17/21 18:30 21:22 WBC 10.2 RBC 2.79 L Hgb 8.9 L Hct 25.9 L MCV 92.8 MCH 31.9 H MCHC 34.4 RDW 12.6 Plt Count 215 MPV 10.0 Neut # (Auto) Lymph # (Auto) Mora # (Auto) Eos # (Auto) Baso # (Auto) Absolute Nucleated RBC Nucleated RBC % Sodium Potassium Chloride Carbon Dioxide Anion Gap BUN Creatinine Estimated GFR (MDRD) Glucose Calcium HCG, Quant Blood Type O POSITIVE Antibody Screen NEGATIVE - Rads (name of study) pelvic US Radiology: EMP read contemporaneously (No IUP seen today. Questionable gestational sac in cervix) PD MEDICAL DECISION MAKING - ED course Complexity details: reviewed results, re-evaluated patient, considered differential, d/w patient, d/w network security consultant (Ottoniel) ED course: 31-year-old female returns to the emergency department for evaluation of feeling lightheaded and heavy vaginal bleeding in the setting of early . Seen yesterday for pelvic cramping. Ultrasound showed an IUP with associated subchorionic hemorrhage. Over the last 24 hours she has continued to have increased bleeding passing large clots. Her HCG has started to decline now jst over 100L today. She has dropped her hemoglobin by nearly 2 g over the last 24 hours to 10.3 and on presentation she is passing heavy clots. Repeat ultrasound does show that she no longer has an IUP and the gestational sac was in the cervix. On repeat evaluation after the ultrasound, patient appears to have passed what I suspect are products of conception. Her bleeding seems to have lightened. I discussed this case with on-call OB Dr. Alcazar. She recommends giving the patient misoprostol 800 mcs buccally and then reevaluating the bleeding with a hemogram. If the patient is saturating more than two pads an hour for two or more hours the patient may require D&C in the OR this evening. 2144: Repeat hemogram shows that the patient's hemoglobin is now dropped to 8.9. However since she has passed her products of conception her bleeding has nearly stopped and is scant at this time. She remains hemodynamically stable. She is not tachycardic but she has had some soft blood pressures in the 90s over 60s. Patient is feeling markedly better. While here in the emergency depa rtment she was able to ambulate without significant tachycardia or dyspnea or feelings of being lightheaded. This case was again discussed with Dr. Alcazar. We would expect now that she is passed the products of conception that the bleeding should minimize. If she is hemodynamically stable and otherwise feeling okay she is stable for discharge home with good return precautions. I discussed the plan with the patient and she is in agreement. I am prescribing a short course of short-acting opioid pain medication for this patient. I have reviewed the patients CHANNEL PROGRAM MANAGER and no concerning findings were noted. I have discussed that the opioids are for short term therapy only, and will not be refilled from the ED. Departure - Departure Disposition: Home, Self Care Clinical Impression: Complete miscarriage Anemia Qualifiers: Anemia type: other cause Other causes of anemia: acute posthemorrhagic Qualified Code(s): D62 - Acute posthemorrhagic anemia Condition: Stable Record reviewed to determine appropriate education?: Yes Instructions: ED Miscarriage Completed Prescriptions: HYDROcod/ACETAM 5/325 [Vanderbilt 5/325] 1 tablet PO BID PRN #5 tablet PRN Reason: Pain Comments: Herlinda you were seen today in the emergency department for worsening vaginal bleeding and lightheadedness. The cause of your severe vaginal bleeding was due to a miscarriage. It does appear as though you have completed the miscarriage and have passed the products of conception. Now that you have completed the miscarriage your bleeding has improved but you have developed some anemia because of this. I would expect that you are feeling weak and fatigued for the better part of the next week but your bone marrow if otherwise healthy should begin to improve your blood counts quickly. It is important that you discuss this ED visit with your primary care doctor and/or your OB. I recommend that you arrange follow-up within 1 week. If at home you have any fainting episodes, sudden chest pain shortness of air develop any fevers or have a return of heavy vaginal bleeding (saturating a pad an hours for 2 or more hours) then please return immediately to the ER. I am prescribing a short course of narcotic pain medication for you. These are potentially dangerous and addictive medications that should be used carefully. These medications may constipate you. Take an [id number] stool softener (docusate) twice daily with plenty of water while taking these medications. If you go 24 hours without a bowel movement, take [id number] miralax, per package instructions. Do not drink or drive while taking these medications. If you received narcotic or sedating medications while in the emergency department, do not drive for 24 hours. Store this medication in a safe, secure place and out of reach of children. It is a violation of federal law to give or sell this medication to another person or to use in a manner other than prescribed. The ED will not refill narcotic prescriptions, including prescriptions lost or stolen. To dispose of unwanted medications: 1. [facility] at [address] in [place] has a medication drop box. They accept prescription medications (in pill form) Monday through Monday 9:00 a.m. to 5:00 p.m. 2. The [facility] accepts prescription medications (in pill form only) for disposal year round. Call for more information. 3. Contact the [facility] for the next [facility] sponsored prescription drug collection event. , x7310, or [phone]; Note that many narcotic pain relievers also contain Tylenol/acetaminophen. Ple ase ensure that your total dose of acetaminophen from all sources does not exceed 3 g (3000 mg) per day.
[2021-08-17 18:41] LABS: CREATININE 0.9 mg/dL (0.4-1.0); POTASSIUM 3.3 mmol/L (3.5-5.0)
[2021-08-17] MEDS ORDERED: SODIUM CHLORIDE 0.9% 1,000 ML IV STA ×2 (18:41→20:50)
[2021-08-17] MEDS ORDERED: HYDROmorphone 1 MG/ML CARPUJECT IVP STA ×2 (18:42→20:52)
[2021-08-17] MEDS ORDERED: miSOPROStoL 200 MCG TABLET PO STA (20:10)
--- NOTE | 2021-08-17 20:38 | Ultrasound Report ---
PROCEDURE: OB First Trimester w/TV INDICATIONS: Heavy VB teodora with IUP yesterday. OUTSIDE/PRIOR DATING DATA: Last menstrual period (LMP): 06/18/2021. LMP-based estimated date of delivery (NATHAN): 03/25/2022. First dating scan (date and location): 08/16/2021. Estimated date of delivery (NATHAN) from first dating scan: 03/27/2022. The below data below was generated using the ultrasound NATHAN of 03/27/2022 TECHNIQUE: Real-time scanning was performed of the fetus and maternal pelvic organs, with image documentation. Endovaginal scanning was also performed to better visualize the fetus and maternal ovaries. COMPARISON: 08/16/2021 FINDINGS: There is no longer a identifiable intrauterine . No crown-rump length and no hear t beat are identified. There is echogenic material present in the endometrial cavity consistent with hemorrhage. IMPRESSION: Interval spontaneous early first trimester aborted . Reviewed by: Michael Deng MD on 08/17/2021 8:37 PM PST Approved by: Michael Deng MD on 08/17/2021 8:37 PM PST Station ID: [id number]
[2021-08-17 21:29] LABS: HCT - HEMATOCRIT 25.9 % (37.0-47.0); HGB - HEMOGLOBIN 8.9 g/dL (12.0-16.0); MEAN CORPUSCULAR HEMOGLOBIN 31.9 pg (27.0-31.0); MEAN CORPUSCULAR HGB CONC 34.4 g/dL (32.0-36.0); MEAN CORPUSCULAR VOLUME 92.8 fL (81.0-99.0); RED BLOOD COUNT 2.79 10^6/uL (4.20-5.40); RED CELL DISTRIBUTION WIDTH 12.6 % (12.0-15.0); WHITE BLOOD COUNT 10.2 x10^3/uL (4.8-10.8)
[2021-08-17] MEDS ORDERED: HYDROcod/ACETAM 5/325 MG TABLET PO STA (21:54)
[2021-08-17 22:08] VITALS: BP 102/59
== END 2021-08-17 22:08 | disposition home or self-care (01) ==
LOC: ED 17:54
DX: O03.9 Complete or unspecified spontaneous abortion without complication (principal); D62 Acute posthemorrhagic anemia
CPT/HCPCS: 36415; 76801; 76817; 80048; 84702; 85025; 85027; 86850; 86900; 86901; 96374; 96376; 99282; 99284; A9270; J1170